=== PATIENT | male | born 1975 | race Caucasian/White ===

== ENCOUNTER 2021-05-12 20:43 | Emergency (ER) | payer SELFPAY ==
[2021-05-12 22:06] LABS: CORONAVIRUS COVID-19 NAA POSITIVE (NEGATIVE)
[2021-05-12 22:10] VITALS: BP 112/69; PULSE 84
--- NOTE | 2021-05-12 22:18 | EDM.PDOC ---
ED HPI GENERAL MEDICAL PROBLEM - General Chief Complaint: Respiratory Problem Stated Complaint: POSSIBLY COVID Time Seen by Provider: 05/12/21 21:30 Source of Information: Reports: Patient, Family History Limitations: Reports: No Limitations - History of Present Illness INITIAL COMMENTS - FREE TEXT/NARRATIVE: 46-year-old male, unvaccinated for Covid, has been ill for the last 3 to 4 days with fatigue, generalized muscle aches, cough and shortness of breath. He had one episode of diarrhea and vomited once. He feels like he has been hit by a truck but is otherwise stable, O2 saturations are over 90% and respiratory rate is normal. Onset: Gradual Duration: Day(s): (4 days of worsening symptoms) Associated Symptoms: Reports: Cough, Malaise, Nausea/Vomiting, Shortness of Breath, Weakness, Other (Generalized malaise) Generalized Pain Score (Numeric/FACES): 3 - Related Data Allergies Allergy/AdvReac Type Severity Reaction Status Date / Time No Known Allergies Allergy Verified 05/12/21 21:00 Home Meds: Home Meds NK [No Known Home Meds] 05/12/21 [History] Past Medical History HEENT History: Reports: Impaired Vision Musculoskeletal History: Reports: Back Pain, Chronic - Infectious Disease History Infectious Disease History: Reports: Chicken Pox - Past Surgical History Musculoskeletal Surgical History: Reports: Other (See Below) Other Musculoskeletal Surgeries/Procedures:: knee clean out Social & Family History - Tobacco Use Tobacco Use Status *Q: Never Tobacco User - Caffeine Use Caffeine Use: Reports: None - Alcohol Use Days Per Week of Alcohol Use: 7 Number of Drinks Per Day: 4 Total Drinks Per Week: 28 - Recreational Drug Use Recreational Drug Use: No ED ROS GENERAL - Review of Systems Review Of Systems: See Below Constitutional: Reports: Malaise, Decreased Appetite HEENT: Reports: Throat Pain (Mild scratchy throat is starting) Respiratory: Reports: Shortness of Breath, Cough Cardiovascular: Denies: Chest Pain Endocrine: Reports: Fatigue GI/Abdominal: Reports: Diarrhea, Vomiting Musculoskeletal: Reports: Muscle Pain Skin: Denies: Rash Neurological: Reports: Weakness. Denies: Headache ED EXAM, GENERAL - Physical Exam Exam: See Below Exam Limited By: No Limitations General Appearance: Alert, No Apparent Distress, Other (Very tired ill-appearing male but not distressed, no increased respiratory effort) Eye Exam: Bilateral Eye: Normal Inspection Head: Atraumatic Neck: Supple. No: Lymphadenopathy (R), Lymphadenopathy (L) Respiratory/Chest: No Respiratory Distress, Lungs Clear Cardiovascular: Regular Rate, Rhythm. No: Tachycardia Extremities: Normal Inspection Neurological: Alert, Oriented, Other (Globally weak, fatigued) Psychiatric: Flat Affect Skin Exam: Warm, Dry Course - Vital Signs Last Recorded V/S: Last Vital Signs Temp 98.3 F 05/12/21 21:09 Pulse 84 05/12/21 22:09 Resp 18 05/12/21 22:09 BP 112/69 05/12/21 22:09 Pulse Ox 91 L 05/12/21 22:09 - Orders/Labs/Meds Orders: Active Orders 24 hr Category Date Time Status Isolation [COMM] Stat Oth 05/12/21 21:25 Ordered Labs: Laboratory Tests 05/12/21 Range/Units 21:24 Influenza Type A RNA Negative (NEGATIVE) RSV RNA ([facility]) Negative (NEGATIVE) Influenza Type B RNA Negative (NEGATIVE) SARS-CoV-2 RNA ([place]) Positive H (NEGATIVE) - Re-Assessments/Exams Free Text/Narrative Re-Assessment/Exam: 05/12/21 22:17 4 Plex viral study was ordered and was positive for Covid. Is patient is typical for an unvaccinated patient less than 1 week into a Covid infection. We do not have antibiotic therapy that he qualifies for at this time as his needs scale is less than 4. If he worsens he can return for reevaluation. Departure - Departure Time of Disposition: 22:19 Disposition: Home, Self-Care 01 Clinical Impression: COVID-19 - Discharge Information Instructions: COVID-19 Frequently Asked Questions, COVID-19, How to Protect Yourself and Others - CDC (12/22/2020), COVID-19: What to Do If You Are Sick- CDC (07/26/2020) Referrals: PCP,None [Primary Care Provider] - Forms: ED Department Discharge Care Plan Goals: Rest, fluids, [id number] medications for aches and pains and cough and consider returning for reevaluation if worsening especially difficulty breathing or low oxygen saturations. Sepsis Event Note (ED) - Evaluation Sepsis Screening Result: No Definite Risk - Focused Exam Vital Signs: Vital Signs Temp Pulse Resp BP Pulse Ox 05/12/21 22:09 84 18 112/69 91 L 05/12/21 21:09 98.3 F 77 21 H 135/73 90 L - My Orders Last 24 Hours: My Active Orders 05/12/21 21:25 Isolation [COMM] Stat - Assessment/Plan Last 24 Hours: My Active Orders 05/12/21 21:25 Isolation [COMM] Stat
== END 2021-05-12 22:27 | disposition home or self-care (01) ==
LOC: JP.ED 20:43
DX: U07.1 COVID-19 (principal)
CPT/HCPCS: 0241U; 99283

== ENCOUNTER 2024-11-03 12:37 | Emergency (ER) | payer OTHER ==
[2024-11-03 13:27] VITALS: BP 125/80; PULSE 73
[2024-11-03] MEDS: HYDROmorphone 1 MG/ML Syringe IM ONE (13:34)
== END 2024-11-03 14:07 | disposition home or self-care (01) ==
LOC: JP.ED 12:37
DX: M54.50 Low back pain, unspecified (principal)
CPT/HCPCS: 96372; 99283; J1171